=== PATIENT | female | born 1950 | race Caucasian/White ===

== ENCOUNTER → 2017-07-24 | Outpatient (REF) | payer OTHER | LOC: M SFHCLERA 15:34 | DX: N39.0 Urinary tract infection, site not specified (principal) ==

== ENCOUNTER → 2017-10-18 | Outpatient (CLI) | payer OTHER | LOC: M WHC 14:55 | DX: R92.8 Other abnormal and inconclusive findings on diagnostic imaging of breast (principal); R92.0 Mammographic microcalcification found on diagnostic imaging of breast ==

== ENCOUNTER → 2017-10-18 | Outpatient (REF) | payer OTHER | LOC: M SFHCWAGY 15:39 | DX: Z12.4 Encounter for screening for malignant neoplasm of cervix (principal) ==

== ENCOUNTER → 2017-10-28 | Outpatient (CLI) | payer OTHER | LOC: M RAD 15:27 | DX: R92.0 Mammographic microcalcification found on diagnostic imaging of breast (principal) | CPT/HCPCS: 77065 ==

== ENCOUNTER → 2017-11-09 | Outpatient (CLI) | payer OTHER ==
[~2017-11-09] MED LIST: LIDOCAINE 1% MDV 20ML VIAL As Ordered
== END ==
LOC: M RADPRO 10:39
DX: N60.12 Diffuse cystic mastopathy of left breast (principal); G47.30 Sleep apnea, unspecified; F32.9 Major depressive disorder, single episode, unspecified; I51.7 Cardiomegaly; M12.9 Arthropathy, unspecified; Z79.899 Other long term (current) drug therapy; Z88.1 Allergy status to other antibiotic agents; Z91.041 Radiographic dye allergy status; Z98.84 Bariatric surgery status; Z86.72 Personal history of thrombophlebitis; Z86.79 Personal history of other diseases of the circulatory system; Z90.49 Acquired absence of other specified parts of digestive tract
CPT/HCPCS: 10022